=== PATIENT | female | born 1995 | race Hispanic/Latino ===

== ENCOUNTER 2020-02-29 16:35 | Emergency (ER) | payer OTHER, SELFPAY | END 2020-02-29 18:34 | disposition home or self-care (01) | LOC: EDH 16:35 | DX: H60.391 Other infective otitis externa, right ear (principal); H65.01 Acute serous otitis media, right ear ==

== ENCOUNTER 2023-06-24 16:35 | Emergency (ER) | payer OTHER ==
[~2023-06-24] VITALS: Ht 167.6 cm; Wt 88.5 kg
[2023-06-24 17:23] VITALS: BP 148/92; PULSE 130; RESP 18; O2SAT 98
== END 2023-06-24 18:59 | disposition home or self-care (01) ==
LOC: EDH 16:35
DX: T19.2XXA Foreign body in vulva and vagina, initial encounter (principal); N93.9 Abnormal uterine and vaginal bleeding, unspecified; Z98.890 Other specified postprocedural states; X58.XXXA Exposure to other specified factors, initial encounter; Y93.89 Activity, other specified; Y92.89 Other specified places as the place of occurrence of the external cause; Y99.8 Other external cause status